=== PATIENT | female | born 1965 ===

== ENCOUNTER 2016-12-17 13:06 | Emergency (ER) | payer BC ==
--- NOTE | 2016-12-19 03:47 | ER ---
ADMIT: 12/17/2016 RM/LOC: [facility] MR#: [id number] [address] [id number] CRUZ LLANOS [address] [place] [address] Emergency Room Report SEX: F AGE: 51 : 1965 DATE: 12/17/2016 For chief complaint, history of present illness, past medical history, medications, allergies, review of systems, including physical exam, please see my T-sheet. 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 She reports that she does the same job over and over and by the night time, it is aching and sore and she has pain and cannot sleep. Vital signs are stable. Physical exam is unremarkable. EMERGENCY ROOM COURSE: Patient was given Valium and Toradol here in the Emergency Department. Did have some improvement. IMPRESSION: Over use injury of the right shoulder. Patient was given a prescription for Valium that she can take at nighttime for muscle spasm, continue anti-inflammatory during the day. Follow up with Dr. Tinoco if symptoms or problems persist or worsen but basic education should indicate that the symptoms should improve. MARIANA Ireland / Servando Zafar MD / shawna JOB #: [id number] CC: Servando Zafar MD, Attending Physician Chelsea Tinoco MD, Family Physician
== END 2016-12-17 14:55 | disposition home or self-care (01) ==
LOC: ER 13:06
DX: S49.91XA Unspecified injury of right shoulder and upper arm, initial encounter (principal); X58.XXXA Exposure to other specified factors, initial encounter; Y92.69 Other specified industrial and construction area as the place of occurrence of the external cause

== ENCOUNTER 2017-01-10 17:03 | Emergency (ER) | payer BC ==
--- NOTE | 2017-01-11 23:11 | ER ---
ADMIT: 01/10/2017 RM/LOC: ER [facility] MR#: [id number] [facility] [address] [place] [id number] [address] [address] [place] [address] Emergency Room Report SEX: F AGE: 51 : 1965 DATE: 01/10/2017 CHIEF COMPLAINT: Pain with urination. HISTORY OF PRESENT ILLNESS: This is a pleasant 51-year-old, female, who presents to the emergency room for evaluation of urinary symptoms. The patient states for the past day she has had some lower back pain as well as some suprapubic abdominal pain. She admits to some dysuria and urinary frequency. The patient states the symptoms continue in the ER. She rates them at a 6/10. She describes the pain as a fullness and aching. She admits to chills, nausea, and some back pain. Denies any fever, diarrhea, or chest pain. She has not tried anything for the pain at home and denies anything making the pain worse. She admits to some history of bladder and kidney infections stating she was treated for a kidney infection about 3 years ago. She is otherwise healthy without any chronic diseases and takes no medications. PAST SURGICAL HISTORY: Includes a . COURSE IN THE EMERGENCY DEPARTMENT: The patient was seen and examined. Finding significant for suprapubic tenderness and some low back tenderness without any real specificity. I did proceed with a urine UA, which was unremarkable for infection and did show 6 rbc's. Urine was negative. Given this, I proceeded to do a renal colic scan, which was negative for any stones. Reading radiologist did comment on an enlarged uterus with thickened endometrium and some free fluid consistent with possible impending menstruation. She was given 15 mg of Toradol IM as well as Zofran 4 mg ODT, which she states did relieve her pain. IMPRESSION: Pelvic pain likely related to menstruation. DISPOSITION: I did discuss with the patient the lab and radiology results. She was encouraged to continue using Tylenol or Motrin as needed for pain. She was told to follow up with Dr. Tinoco if her symptoms persist, and she was instructed to return to the department with any worsening signs or symptoms. Questions were sought and answered to the best of our ability and to the patient's satisfaction. She voiced understanding of the plan moving forward and was discharged in stable condition. MARIANA Pathak / Alan Fulton MD / shawna JOB #: [id number] CC: Alonso Obrien MD, Attending Physician Chelsea Tinoco MD, Family Physician
== END 2017-01-10 19:18 | disposition home or self-care (01) ==
LOC: ER 17:03
DX: R10.2 Pelvic and perineal pain (principal)

== ENCOUNTER 2017-06-18 20:32 | Emergency (ER) | payer BC ==
--- NOTE | 2017-06-19 09:16 | ER ---
ADMIT: 06/18/2017 RM/LOC: ER [facility] MR#: [id number] [facility] [address] [place], [place] [address] CRUZ LLANOS [address] [place], [place] [id number] Emergency Room Report SEX: F AGE: 51 : 1965 DATE: 06/18/2017 HISTORY OF PRESENT ILLNESS: The patient is a female 51 years of age, presents to the emergency room with a headache. She points to the right eye and back of the neck. She has had it since 3 hours now. She has some nausea, vomiting, and sound bothers her. REVIEW OF SYSTEMS: Negative. PAST MEDICAL HISTORY: Negative. She works at [employer]. She took ibuprofen and that did not help her. She has had a past history of . No allergies. EXAMINATION: VITAL SIGNS: Blood pressure 165/96 with a heart rate of 66, respirations 18, temp is 97.5, O2 sats 100%. GENERAL: Mildly anxious. HEENT: Normal to inspection. NECK: Supple. CHEST: Respirations, no distress. CVS: Regular in rate and rhythm. ABDOMEN: Nontender. NEUROLOGIC: Rest of physical examination is within normal limits including the neurological exam which is normal as well. Romberg is negative and oriented x4 with mood and affect appropriate. She was given IV fluids, Benadryl, Toradol, and Reglan, which did help with her symptoms. She had mentioned that her headache originally was at 8/10, and at this point, now her level is 0 to 10. Blood pressure has gone down to 136/90. Discharged with instructions to follow up with [facility], Dr. Cheema. Hydration, rest, and a note for work. MARIANA Horner / Alonso Obrien MD / shawna JOB #: [id number] CC: Alonso Obrien MD, Attending Physician UNKNOWN, Family Physician
== END 2017-06-18 23:20 | disposition home or self-care (01) ==
LOC: ER 20:32
DX: R51 Headache (principal); Z98.890 Other specified postprocedural states; Z79.899 Other long term (current) drug therapy